=== PATIENT | male | born 1955 | race Caucasian/White ===

== ENCOUNTER → 2017-01-18 | Outpatient (CLI) | payer OTHER ==
--- NOTE | ~2017-01-18 | CR63 ---
[facility]. [facility] A Service [facility] RADIOLOGY TEXT RESULTS PATIENT: ABDON HAM LOCATION: SRAD : 55 UNIT #: [id number] AGE: [address]: Ezekiel Colón MD SEX: M ORDER DR: [id number] [place] [id number] O MR#: [id number] #: [id number] NAME: ABDON HAM : 1955 SEX: M STUDY DATE/TIME: 01/18/2017 14:47 UNIT: SRAD ROOM: STUDY DESCRIPTION: CR Chest 2 View Attending Physician: Ezekiel Colón M.D. Referring Physician: Ezekiel Colón M.D. Ordering Physician: Ezekiel Colón M.D. Primary Care Physician: Ezekiel Colón M.D. MEDICAL IMAGING REPORT This report is preliminary unless electronic signature is present. EXAM Chest, PA and lateral. HISTORY Cough, allergies, sinus problems for a few weeks. TECHNIQUE PA and lateral views of the chest are obtained. COMPARISON STUDIES They are compared with previous CT of the chest which is dated August 15, 2013. FINDINGS Heart size is within normal limits. Lungs show interstitial fibrotic changes bilaterally. No acute infiltrates are identified. There is atherosclerotic calcification of the aorta. CONCLUSION Interstitial fibrotic changes in both lungs. No active disease. Dictated by... Easton Freire M.D. THIS IS AN ELECTRONICALLY VERIFIED REPORT Easton Ferire M.D. at 01/19/2017 7:23 AM ATUL/monie TD: 01/18/2017 16:57 JOB #: [id number] [facility] A Service [facility] RADIOLOGY TEXT RESULTS PATIENT: ABDON HAM LOCATION: SRAD : 55 UNIT #: [id number] AGE: [address]: Ezekiel Colón MD SEX: M ORDER DR: MEDICAL IMAGING REPORT Page 1 of 1
== END | disposition home or self-care (01) ==
LOC: SRAD 14:38
DX: R05 Cough (principal)
CPT/HCPCS: 71020